=== PATIENT | male | born 1950 | race Caucasian/White ===

== ENCOUNTER 2017-06-06 08:48 | Emergency (ER) | payer OTHER ==
[~2017-06-06] VITALS: Ht 185.4 cm; Wt 118.8 kg
[~2017-06-06 08:48] MED LIST: RANI150T3 PO; TAMS0.4C59 PO; testosterone inj IM
[2017-06-06 09:08] VITALS: Ht 185.4 cm; Wt 118.8 kg
[2017-06-06 09:48] LABS: BASO % 0.4 %; BASO ABS # 0.04 K/uL (0-0.2); COMPLETE YES; EOS % 2.5 %; HEMATOCRIT 44.6 % (42-52); IG% 0.2 %; LYMPH ABS # 2.74 K/uL (1.2-3.4); MEAN CELL VOLUME 93.3 fL (80-100); MEAN CORPUSCULAR HEMOGLOBIN 33.3 pg (25-34); MEAN CORPUSCULAR HGB CONC 35.7 g/dl (32-36); MEAN PLATELET VOLUME 11.8 fL (7.4-10.4); MONO % 13.1 %; NEUT % 54.8 %; PLATELET COUNT 177 K/uL (130-400); RED BLOOD COUNT 4.78 M/uL (4.7-6.1); WHITE BLOOD COUNT 9.46 K/uL (4.8-10.8)
[2017-06-06 09:53] LABS: URINE APPEARANCE CLEAR (CLEAR); URINE BILIRUBIN NEG (NEG); URINE COLOR YELLOW; URINE NITRITE NEG (NEG); URINE SPECIFIC GRAVITY 1.021 (1.000-1.030); UROBILINOGEN NEG (NEG)
[2017-06-06 09:54] LABS: MANUAL MICROSCOPIC REQUIRED? NO; REVIEW REQ? NO
--- NOTE | 2017-06-06 10:03 | DIAGNOSTIC IMAGING REPORT ---
CHEST 2 VIEWS ROUTINE HISTORY: 67 years-old Male weakness/fatigue acute weakness and fatigue. COMPARISON: Chest radiograph 11/21/2012 TECHNIQUE: PA and lateral views of the chest FINDINGS: Cardiomediastinal and hilar silhouettes are within normal limits. There is atherosclerosis of the aorta. No pneumothorax, pleural effusion, focal airspace consolidation or overt pulmonary edema. The bones are grossly intact. IMPRESSION: No acute cardiopulmonary process. The above report was generated using voice recognition software. It may contain grammatical, syntax or spelling errors. Electronically signed by: Enoch Nam M.D. 06/06/2017 10:01 AM Dictated Date/Time: 06/06/2017 10:00 AM
[2017-06-06 10:14] LABS: BUN/CREATININE RATIO 23.4 (10-20); CALCIUM 9.2 mg/dl (8.5-10.1); CREATININE 0.92 mg/dl (0.60-1.40); POTASSIUM 4.2 mmol/L (3.5-5.1)
[2017-06-06 10:25] LABS: THYROID STIMULATING HORMONE 3.51 uIu/ml (0.300-4.500)
[2017-06-06] MEDS ORDERED: AZITTAB PO (11:52)
[2017-06-06 12:16] VITALS: BP 148/82; PULSE 69; TEMP 36.7; O2SAT 96
--- NOTE | 2017-06-06 15:32 | EMERGENCY ROOM VISIT NOTE ---
ED Visit Note First contact with patient: 09:12 I have personally evaluated this patient examined her and reviewed the pertinent labs and data. I have discussed the case with Elio Jeffery, the physician medicine assistant and agree with the plan. Please refer to the PA note. This patient comes in as described above. He was placed in room A 11. He is here after feeling weak for about a month. He has had a persistent cough. He looks well on exam and is in no distress with clear lung adam. He's had no fever. She's had no chest pain. EKG does not suggest acute coronary syndrome or arrhythmia. Chest x-ray is clear. Blood work is unremarkable. His normal thyroid. He does have a history of smoking, I think probably has a bronchitis with persistent cough we will put him on antibiotics to cover the possibility of pertussis as well. He was given azithromycin Z-Rk. I encouraged him follow -up with his regular doctor and return if any new problems or concerns.
--- NOTE | 2017-06-24 10:08 | EMERGENCY ROOM VISIT NOTE ---
History First contact with patient: 09:12 Chief Complaint: OTHER COMPLAINT Stated Complaint: LUNG CONGESTIONS,LACK OF ENERGY History of Present Illness The patient is a 67 year old white male who presents to the Emergency Room with complaints of chest congestion, fatigue, and dizziness, that has been present for over 3 weeks. He denies any chest pain. No nausea or vomiting. No diarrhea. He has had chills and sweats. No specific fever that he is aware of. No known ill contacts. He has tried some OTC medications without improvement. He does smoke. He is most concerned about the cough, as it is persistent and is affecting his sleep. He has not seen his PCP. No sore throat or ear pain. Review of Systems REVIEW OF SYSTEM: HEENT: No visual problems, hearing loss, or tinnitus. There is no difficulty swallowing and no oral lesions are present. LYMPH: No adenopathy. PULMONARY: Positive cough, shortness of breath, and sputum production. No hemoptysis. CARDIOVASCULAR: No chest pain, palpitations, or peripheral edema. GASTROINTESTINAL: No diarrhea, constipation, nausea, vomiting, or abdominal pain. GENITOURINARY: No dysuria, frequency, urgency or nocturia. NEUROLOGIC: No weakness, muscle tenderness, epilepsy or history of neurological problems. MUSCULOSKELETAL: No history of joint tenderness/swelling. Positive history of arthritis and arthralgias. SKIN: No rashes or lesions. PSYCHIATRIC: No history of depression or mental illness. ENDOCRINE: No history of diabetes, thyroid disorders, or abnormal hair growth. Past Medical/Surgical History Medical Problems: (1) CVA (2) DIVERTICULOSIS COLON (W/O MENT OF HEMORRHAGE) (3) ESOPHAGEAL REFLUX (4) TOBACCO USE DISORDER Family History Noncontributory. Social History Smoking Status: Current Every Day Smoker Smokeless Tobacco Use: No Alcohol Use: occasionally Drug Use: none Occupation Status: employed Current/Historical Medications Scheduled PRN Ranitidine Hcl (Zantac), 150 MG PO DAILY PRN for Allergies Coded Allergies: Codeine (Unverified Allergy, Unknown, ITCHY, 06/06/17) Physical Exam Vital Signs Date Time Temp Pulse Resp B/P (MAP) Pulse Ox O2 Delivery O2 Flow Rate FiO2 06/06/17 12:16 36.7 69 18 148/82 96 06/06/17 11:27 69 18 148/82 96 Room Air 06/06/17 09:08 36.7 81 18 130/80 95 Room Air Physical Exam Gen.: Well-developed, well-nourished, middle-aged male, in no acute distress. Sitting on a bed. Alert and oriented. No respiratory distress. Skin:Warm and dry with good turgor. No rashes or lesions. No ecchymosis or erythema. The patient is not diaphoretic. No abrasions. HEENT: Normocephalic atraumatic. Eyes PERRLA, EOMI. No conjunctiva or scleral injection. Ears TMs intact bilaterally with good light reflexes. No erythema or bulging. No hemotympanum. Canals are patent. Nares patent bilaterally without turbinate enlargement. No significant drainage. No epistaxis. Oropharynx without erythema or exudate. Uvula midline, oral mucosa moist. No lesions present. Lymphatics are palpated without anterior or posterior chain enlargement or tenderness. Heart: Heart RRR. No MGR. Peripheral pulses are 2+. Lungs: Lungs are clear to auscultation. No crackles rhonchi or wheezing. Frequent cough. Good air movement. The patient is able to take a deep breath. Abdomen: Abdomen was inspected, auscultated, and palpated. Bowel sounds present x 4. Soft, nontender to palpation. No hepato-splenomegaly. No masses noted. No rebound. Musculoskeletal: Gross motor function of the upper and lower extremities is intact and unremarkable. Neurologic: Gross sensation is intact across the upper and lower extremities by soft touch. Medical Decision & Procedures ER Provider Diagnostic Interpretation: EKG obtained today shows a normal sinus rhythm with a rate of 78. No acute ST or T-wave changes are present. Chest x-ray obtained today was read by radiology as negative acute cardiopulmonary process. No pleural effusion or pneumonia. Laboratory Results 06/06/17 09:30 Red Blood Count 4.78, Mean Corpuscular Volume 93.3, Mean Corpuscular Hemoglobin 33.3, Mean Corpuscular Hemoglobin Concent 35.7, Mean Platelet Volume 11.8, Neutrophils (%) (Auto) 54.8, Lymphocytes (%) (Auto) 29.0, Monocytes (%) (Auto) 13.1, Eosinophils (%) (Auto) 2.5, Basophils (%) (Auto) 0.4, Neutrophils # (Auto ) 5.18, Lymphocytes # (Auto) 2.74, Monocytes # (Auto) 1.24, Eosinophils # (Auto ) 0.24, Basophils # (Auto) 0.04 06/06/17 09:30 Test 06/06/17 09:30 White Blood Count 9.46 K/uL (4.8-10.8) Red Blood Count 4.78 M/uL (4.7-6.1) Hemoglobin 15.9 g/dL (14.0-18.0) Hematocrit 44.6 % (42-52) Mean Corpuscular Volume 93.3 fL (80-100) Mean Corpuscular Hemoglobin 33.3 pg (25-34) Mean Corpuscular Hemoglobin Concent 35.7 g/dl (32-36) Platelet Count 177 K/uL (130-400) Mean Platelet Volume 11.8 fL (7.4-10.4) Neutrophils (%) (Auto) 54.8 % Lymphocytes (%) (Auto) 29.0 % Monocytes (%) (Auto) 13.1 % Eosinophils (%) (Auto) 2.5 % Basophils (%) (Auto) 0.4 % Neutrophils # (Auto) 5.18 K/uL (1.4-6.5) Lymphocytes # (Auto) 2.74 K/uL (1.2-3.4) Monocytes # (Auto) 1.24 K/uL (0.11-0.59) Eosinophils # (Auto) 0.24 K/uL (0-0.5) Basophils # (Auto) 0.04 K/uL (0-0.2) RDW Standard Deviation 43.9 fL (36.4-46.3) RDW Coefficient of Variation 12.9 % (11.5-14.5) Immature Granulocyte % (Auto) 0.2 % Immature Granulocyte # (Auto) 0.02 K/uL (0.00-0.02) Urine Color YELLOW Urine Appearance CLEAR (CLEAR) Urine pH 5.0 (4.5-7.5) Urine Specific [place] 1.021 (1.000-1.030) Urine Protein NEG (NEG) Urine Glucose (UA) NEG (NEG) Urine Ketones NEG (NEG) Urine Occult Blood NEG (NEG) Urine Nitrite NEG (NEG) Urine Bilirubin NEG (NEG) Urine Urobilinogen NEG (NEG) Urine Leukocyte Esterase NEG (NEG) Anion Gap 5.0 mmol/L (3-11) Est Creatinine Clear Calc Drug Dose 105.2 ml/min Estimated GFR () 99.4 Estimated GFR (Non- 85.8 BUN/Creatinine Ratio 23.4 (10-20) Calcium Level 9.2 mg/dl (8.5-10.1) Total Bilirubin 0.4 mg/dl (0.2-1) Aspartate Amino Transf (AST/SGOT) 17 U/L (15-37) Alanine Aminotransferase (ALT/SGPT) 41 U/L (12-78) Alkaline Phosphatase 61 U/L (45-117) Total Protein 7.8 gm/dl (6.4-8.2) Albumin 3.8 gm/dl (3.4-5.0) Globulin 4.0 gm/dl (2.5-4.0) Albumin/Globulin Ratio 1.0 (0.9-2) Thyroid Stimulating Hormone (TSH) 3.510 uIu/ml (0.300-4.500) Free Thyroxine 1.02 ng/dl (0.80-1.60) CBC, chem panel, UA, TSH, and free T4 were obtained. All of these are unremarkable. ED Course Patient was educated regarding today's findings. Conservative care measures were discussed. IV was established. Labs were obtained. EKG and chest x-ray were also obtained. Patient remained stable while in the ED. He is not hypoxic. He was reassured that I find no evidence for pneumonia. Likelihood of bronchitis was discussed. Given that his symptoms have been ongoing for approximately 3 weeks and he is a smoker, patient was treated with Zithromax Z- Rk to be used daily for 5 days. Follow-up with his PCP. Return to the ED for any acute changes or worsening of symptoms. Tylenol and Motrin every 6 hours as needed for aches and fever control. Maintain hydration. He may elect to try allergy type medications such as Zyrtec or Claritin to see if this improves his symptoms. He was also encouraged to decrease his smoking, as this will likely make the greatest difference in his symptoms. Patient was seen in conjunction with Dr. Warren, who also evaluated the patient and concurred with today's diagnosis and treatment plan. Medical Decision Possibility of pneumonia, bronchitis, lung mass or tumor, cardiac source, and common cold were considered, among others [place] Drug Monitoring Program Search Results: no issues identified Impression Primary Impression: Cough Additional Impression: Fatigue Departure Information Dispostion Home / Self-Care Condition GOOD Forms WORK / SCHOOL INSTRUCTIONS, HOME CARE DOCUMENTATION FORM, IMPORTANT VISIT INFORMATION Patient Instructions My [facility] [employer] Additional Instructions Follow-up with your PCP this week for further management-call on Thursday for an appointment Maintain hydration Rest as needed start Zithromax daily x 5 days Return to the ED for any acute changes or worsening of symptoms You may try allergy medication such as Claritin or Zyrtec to see if this decreases your symptoms Problem Qualifiers Additional Impression: Fatigue Fatigue type: due to exposure Encounter type: initial encounter Qualified Codes: T73.2XXA - Exhaustion due to exposure, initial encounter
== END 2017-06-06 12:17 | disposition home or self-care (01) ==
LOC: C.EDB 08:49 → C.EDA 12:17
DX: R05 Cough (principal); R53.83 Other fatigue; T73.2XXA Exhaustion due to exposure, initial encounter; X58.XXXA Exposure to other specified factors, initial encounter; K21.9 Gastro-esophageal reflux disease without esophagitis; K57.30 Diverticulosis of large intestine without perforation or abscess without bleeding; Z86.73 Personal history of transient ischemic attack (TIA), and cerebral infarction without residual deficits; F17.210 Nicotine dependence, cigarettes, uncomplicated

== ENCOUNTER 2017-10-06 07:34 | Emergency (ER) | payer OTHER ==
[~2017-10-06] VITALS: Ht 185.4 cm; Wt 124.0 kg
[~2017-10-06 07:34] MED LIST changes: -TAMS0.4C59 PO; -testosterone inj IM
[2017-10-06 07:36] VITALS: TEMP 36.8; Ht 185.4 cm; Wt 124.0 kg
[2017-10-06] MEDS ORDERED: ACETAMINOPHEN 325 MG TAB PO STA (07:55)
[2017-10-06] MEDS ORDERED: ALBUT/IPRATROP 3MG/0.5MG NEB 3 ML VIAL INH STA (07:55)
[2017-10-06] MEDS ORDERED: OXYMETAZOLINE HCL 0.05% NA SPR 15 ML BTL NAE ONE (08:00)
[2017-10-06] MEDS ORDERED: AMOXICILLIN/CLAVULANATE TAB 875 MG TAB PO ONE (08:00)
[2017-10-06] MEDS ORDERED: NEOMYCIN/POLYMYX/HYDROCORT OT SOLN 10 ML BTL OTB STA (08:05)
--- NOTE | 2017-10-06 08:08 | EMERGENCY ROOM VISIT NOTE ---
History Report prepared by Heidi: Kemi Bettencourt Under the Supervision of: Dr. Cyn Gan M.D. First contact with patient: 07:40 Chief Complaint: EAR PAIN Stated Complaint: R EAR,FLU,COIHG,NAUSEA History of Present Illness The patient is a 67 year old male who presents to the Emergency Room with complaints of worsening right ear pain for the past few days. The patient has been experiencing flu-like symptoms for the past 3 weeks. He reports nausea, congestion, cough, shortness of breath, and hold/cold flashes. He has had ear pain and states that "I think my ear drum ruptured last night." He rates his pain as a 5/10 in severity and reports pressure in his ear. He states that if he lays down this pressure increases and his pain becomes a 10/10. He denies any drainage from the ear. 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 A total of 10 systems reviewed and were otherwise negative. Past Medical & Surgical Medical Problems: (1) CVA (2) DIVERTICULOSIS COLON (W/O MENT OF HEMORRHAGE) (3) ESOPHAGEAL REFLUX (4) TOBACCO USE DISORDER Family History Diabetes mellitus Social History Smoking Status: Current Every Day Smoker Alcohol Use: occasionally Drug Use: none Marital Status: Housing Status: lives with family Occupation Status: employed Current/Historical Medications Scheduled Amoxicillin & Pot Clavulanate (Augmentin 875-125 mg), 875 MG PO BID Lisinopril (Zestril), 10 MG PO DAILY Metformin Hcl (Glucophage), 500 MG PO BID Scheduled PRN Ranitidine Hcl (Zantac), 150 MG PO DAILY PRN for Allergies Coded Allergies: Codeine (Unverified Allergy, Unknown, ITCHY, 10/06/17) Physical Exam Vital Signs Date Time Temp Pulse Resp B/P (MAP) Pulse Ox O2 Delivery O2 Flow Rate FiO2 10/06/17 09:09 98 16 147/86 100 10/06/17 08:14 99 Room Air 10/06/17 07:36 36.8 105 18 154/86 96 Room Air Physical Exam Vital signs reviewed. General: Well-appearing 67 year old male, in no significant distress, smells of tobacco. HEENT: No scleral icterus, PERRLA, neck supple. Atraumatic. Mucous in posterior oropharynx on the right with cobblestoning and oropharyngeal erythema. TMs are bulging with serous effusions. External auditory canal edema and erythema bilaterally. Cardiovascular: Regular rate and rhythm, no extra sounds. Pulmonary: Clear to auscultation bilaterally, normal work of breathing. Abdomen: Soft, nontender, nondistended, positive bowel sounds. Musculoskeletal: Atraumatic, no peripheral edema. No meningeal signs Neurologic: Patient awake alert and oriented x 3, full strength in all 4 extremities. Cranial nerves 2 through 12 grossly intact. Skin: Warm, dry, no rash Medical Decision & Procedures ER Provider Diagnostic Interpretation: Radiology results as stated below per my review and radiologist interpretation: CHEST ONE VIEW PORTABLE CLINICAL HISTORY: cough, smoker dyspnea COMPARISON STUDY: 06/06/2017 FINDINGS: The bones soft tissues and hemidiaphragms are normal. The cardiomediastinal silhouette is normal. The lungs are clear. The pulmonary vasculature is normal. IMPRESSION: Negative chest. The above report was generated using voice recognition software. It may contain grammatical, syntax or spelling errors. Electronically signed by: Edward Alberto M.D. 10/06/2017 8:15 AM Dictated Date/Time: 10/06/2017 8:15 AM Medications Administered Medications (Trade) Dose Ordered Sig/Danyelle Route Start Time Stop Time Status Last Admin Dose Admin Amoxicillin/ Clavulanate Potassium (Augmentin Tab) 875 mg ONE ONCE PO 10/06/17 08:00 10/06/17 08:01 DC 10/06/17 08:02 875 MG Oxymetazoline HCl (Afrin 0.05% Nasal [place]) 2 sprays NOW ONCE WENCESLAO 10/06/17 08:00 10/06/17 08:01 DC 10/06/17 08:02 2 SPRAYS Acetaminophen (Tylenol Tab) 650 mg NOW STAT PO 10/06/17 07:55 10/06/17 07:57 DC 10/06/17 08:02 650 MG Albuterol/ Ipratropium (Duoneb) 3 ml NOW STAT INH 10/06/17 07:55 10/06/17 07:57 DC 10/06/17 08:03 3 ML Neomycin/ Polymyxin/ Hydrocortisone (Cortisporin Otic Soln) 4 drops NOW STAT OTB 10/06/17 08:05 10/06/17 08:06 DC 10/06/17 08:32 4 DROPS ED Course 0745: Past medical records reviewed. The patient was evaluated in room B3B. A complete history and physical examination was performed. 0755: DuoNeb 3 ml INH, Tylenol 650 mg PO 0800: Afrin 2 sprays WENCESLAO, Augmentin 875 mg PO 0805: Cortisporin 4 drops OTB 0844: I reassessed the patient at this time. He is feeling better and resting comfortably. I discussed the results and treatment plan with the patient. I answered all pertaining questions that he had. He expressed understanding and verbalized agreement. The patient will be discharged home. Medical Decision Differential diagnosis: Etiologies such as viral syndrome, otitis, pharyngitis, pneumonia, influenza, meningitis, urinary tract infection, sepsis, bacteremia, as well as others were entertained. This patient was evaluated and appeared to be in no significant distress. The patient has been ill for approximately 3 weeks to his account. Physical examination is consistent with a sinusitis, postnasal drip as well as a bilateral otitis media. The patient was given Cortisporin otic drops to be used twice daily for 7 days, oral Augmentin started in the emergency department and given a DuoNeb treatment. The patient was also given oral Tylenol for pain and Afrin nasal spray to assist with decongestion. Patient was advised to stop smoking. He will follow-up with his PCP this week for reevaluation and return to the ER for worsening of symptoms or any medical concerns. Medication Reconcilliation Current Medication List: was personally reviewed by me Blood Pressure Screening Patient's blood pressure: Elevated blood pressure Blood pressure disposition: Elevated BP felt to be situational Impression Primary Impression: Sinusitis Additional Impressions: Bilateral otitis media Bilateral otitis externa Scribe Attestation The scribe's documentation has been prepared under my direction and personally reviewed by me in its entirety. I confirm that the note above accurately reflects all work, treatment, procedures, and medical decision making performed by me. Departure Information Dispostion Home / Self-Care Prescriptions Amoxicillin & Pot Clavulanate (Augmentin 875-125 mg) 1 Tab Tab 875 MG PO BID for 10 Days, #20 TAB Prov: Cyn Gan M.D. 10/06/17 Referrals Wilbur Bruce M.D. (PCP) Forms HOME CARE DOCUMENTATION FORM, IMPORTANT VISIT INFORMATION, WORK / SCHOOL INSTRUCTIONS Patient Instructions My [facility] Additional Instructions Diagnosis: Acute sinusitis, bilateral otitis media/externa Augmentin 875 mg twice daily for 10 days. Cortisporin otic drops 4 drops to each ear twice daily for 7 days. Tylenol 650 mg every 6 hours as needed for pain. Drink plenty of clear fluids. Please stop smoking. Follow-up with your primary care provider this week for reevaluation. Return to the ER for worsening of symptoms or any medical concerns. Problem Qualifiers
[2017-10-06] MEDS ORDERED: GLC/500 PO (08:15)
--- NOTE | 2017-10-06 08:16 | DIAGNOSTIC IMAGING REPORT ---
CHEST ONE VIEW PORTABLE CLINICAL HISTORY: cough, smoker dyspnea COMPARISON STUDY: 06/06/2017 FINDINGS: The bones soft tissues and hemidiaphragms are normal. The cardiomediastinal silhouette is normal. The lungs are clear. The pulmonary vasculature is normal. IMPRESSION: Negative chest. The above report was generated using voice recognition software. It may contain grammatical, syntax or spelling errors. Electronically signed by: Edward Alberto M.D. 10/06/2017 8:15 AM Dictated Date/Time: 10/06/2017 8:15 AM
[2017-10-06] MEDS ORDERED: LISI-461 PO (08:18)
[2017-10-06] MEDS ORDERED: AMOX875T PO (08:51)
[2017-10-06 09:09] VITALS: BP 147/86; PULSE 98; O2SAT 100
== END 2017-10-06 09:14 | disposition home or self-care (01) ==
LOC: C.EDB 07:36
DX: J32.9 Chronic sinusitis, unspecified (principal); H60.93 Unspecified otitis externa, bilateral; H66.93 Otitis media, unspecified, bilateral; Z86.73 Personal history of transient ischemic attack (TIA), and cerebral infarction without residual deficits; K21.9 Gastro-esophageal reflux disease without esophagitis; F17.210 Nicotine dependence, cigarettes, uncomplicated; Z83.3 Family history of diabetes mellitus; Z79.84 Long term (current) use of oral hypoglycemic drugs